=== PATIENT | male | born 1995 | race Caucasian/White ===

== ENCOUNTER → 2019-10-25 12:44 | Outpatient (CLI) | payer OTHER, SELFPAY ==
--- NOTE | 2019-10-25 | DI.MRI.S_ITS ---
PROCEDURE: MR KNEE RT WO CON INDICATIONS: Pain in right knee TECHNIQUE: Noncontrast sagittal PD fast spin echo and T2 fast spin echo with fat saturation, sagittal 3-D FLASH with fat saturation; coronal T1 spin echo and PD fast spin echo with fat saturation, and axial PD fast spin echo with fat saturation through the knee. COMPARISON: None. FINDINGS: Image quality: Diagnostic. Bones and joint: There is no acute fracture or dislocation. However, there is mild focal marrow edema identified along the periphery of the medial femoral condyle near the MCL attachment. There also is mild focal marrow edema identified along the periphery of the posterior aspect of the lateral tibial plateau without an associated fracture evident. No suspicious osseous lesions are evident. There is a small knee joint effusion without significant fluid extending into a Dunn's cyst. Small amount of fluid is seen extending along the popliteal tendon sheath. The mild heterogeneity of the hyaline articular cartilage is identified. No definite full-thickness cartilaginous defects are appreciated. Cruciate ligaments: The anterior cruciate ligament is thickened and edematous. The posterior cruciate ligament is intact and otherwise unremarkable. Menisci: There is slight increased signal identified along the periphery of the body and posterior horn of the medial meniscus without a discrete tear evident. The lateral meniscus is intact and otherwise unremarkable. Medial structures: The medial collateral ligament is mildly thickened and demonstrates slight increase signal with peritendinous edema evident. There is also increased signal at the femoral attachment of the medial patellofemoral ligament. The semimembranosus tendon insertion is intact. The imaged portions of the pes anserinus tendons are unremarkable. No significant fluid is contained within the pes anserinus bursa. Lateral structures: The popliteal tendon is intact. However, there is mild increased signal at its origin. There is increased signal evident involving the proximal aspect of the popliteal muscle. There is also corresponding increased signal evident involving the proximal aspect of the soleus muscle. The lateral collateral ligament proper (fibular collateral ligament) and the proximal tibiofibular ligaments are intact. The distal aspect of the biceps femoris tendon and the iliotibial band are intact. Anterior structures: The quadriceps and patellar tendons are intact. There is no significant edema in the infrapatellar fat pad. IMPRESSION: 1. Partial-thickness tearing involving the anterior cruciate ligament. 2. Bone contusions along the periphery of the medial femoral condyle and the posterior aspect of the lateral tibial plateau. No fractures. 3. Small knee joint effusion. 4. Medial collateral ligament and medial patellofemoral ligament sprains. There may be partial-thickness tearing involving the medial patellofemoral ligament. 5. Mild proximal popliteal tendinopathy with a corresponding low grade muscle strain. 6. Mild strain of the proximal soleus muscle. 7. Slight increased signal on the periphery of the medial meniscus at the junction of the body and posterior arm could represent a subtle meniscal contusion. No discrete meniscal tears are evident. Dictated by: Oni Harp M.D. on 10/25/2019 at 14:21 Approved by: Oni Harp M.D. on 10/25/2019 at 14:25
== END ==
DX: M25.561 Pain in right knee (principal); S83.511A Sprain of anterior cruciate ligament of right knee, initial encounter; S83.411A Sprain of medial collateral ligament of right knee, initial encounter; S80.01XA Contusion of right knee, initial encounter; M25.461 Effusion, right knee
CPT/HCPCS: 73721